=== PATIENT | male | born 1965 | race Caucasian/White ===

== ENCOUNTER 2025-01-11 09:08 | Day surgery (SDC) | payer MEDICAID ==
[2025-01-11] MEDS: Lactated Ringers 1,000 ML IV SCH (09:51)
[2025-01-11] MEDS ORDERED: Midazolam 1 MG/ML 2 ML SDV ONE (10:18)
[2025-01-11] MEDS ORDERED: Propofol 200 MG/20 ML SDV ONE (10:39)
[2025-01-11] MEDS ORDERED: fentaNYL 100 MCG/2 ML SDV ONE (10:40)
== END 2025-01-11 12:50 | disposition home or self-care (01) ==
LOC: JP.SDS 09:08
PROVIDERS: ATTEND Surgery
DX: Z12.11 Encounter for screening for malignant neoplasm of colon (principal); D12.0 Benign neoplasm of cecum; E78.00 Pure hypercholesterolemia, unspecified; I10 Essential (primary) hypertension; E11.9 Type 2 diabetes mellitus without complications; Z87.891 Personal history of nicotine dependence; Z79.4 Long term (current) use of insulin; Z79.899 Other long term (current) drug therapy
CPT/HCPCS: 00811; 45380; J2250; J2704; J3010; J7120